=== PATIENT | female | born 1995 | race American Indian/Alaskan Native ===

== ENCOUNTER 2016-06-28 12:58 | Emergency (ER) | payer OTHER, MEDICAID ==
[2016-06-28 13:26] VITALS: BP 120/85
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
== END 2016-06-28 17:48 | disposition left against medical advice (07) ==
LOC: ED 12:58
DX: R51 Headache (principal); R42 Dizziness and giddiness; F17.200 Nicotine dependence, unspecified, uncomplicated; Z91.030 Bee allergy status; V49.9XXA Car occupant (driver) (passenger) injured in unspecified traffic accident, initial encounter; Y93.89 Activity, other specified; Y99.9 Unspecified external cause status; Y92.410 Unspecified street and highway as the place of occurrence of the external cause; Z53.21 Procedure and treatment not carried out due to patient leaving prior to being seen by health care provider
CPT/HCPCS: 70450; 81025

== ENCOUNTER 2016-09-29 16:59 | Emergency (ER) | payer BC, MEDICAID ==
[2016-09-29 17:16] VITALS: BP 126/62
[2016-09-29 17:49] LABS: Basophils % (Auto) 0.3 % (0.0-1.8); Eosinophils % (Auto) 6.3 % (0.0-4.3); Hematocrit 37.4 % (30.3-42.9); Hemoglobin 11.8 gm/dl (10.1-14.3); Mean Corpuscular HGB Conc 32 % (30-34); Mean Corpuscular Volume 75 fl (79-97); Platelet Count 341 K/mm3 (140-440); Red Blood Count 4.99 M/mm3 (3.65-5.03); Red Cell Distribution Width 16.5 % (13.2-15.2); White Blood Count 10.8 K/mm3 (4.5-11.0)
[2016-09-29 17:59] LABS: Anion Gap 18 mmol/L; BUN/Creatinine Ratio 12.85; Blood Urea Nitrogen 9 mg/dL (7-17); Calcium 9.7 mg/dL (8.4-10.2); Carbon Dioxide 24 mmol/L (22-30); Chloride 103.9 mmol/L (98-107); Glucose 92 mg/dL (65-100); Potassium 4.5 mmol/L (3.6-5.0); Sodium 141 mmol/L (137-145)
[2016-09-29 18:09] LABS: Mean Corpuscular Hemoglobin 24 pg (28-32)
[2016-09-29 18:15] LABS: Bilirubin,Urine NEG (Negative); Blood,Urine NEG (Negative); Ketones,Urine NEG (Negative); Leukocyte Esterase,Urine NEG (Negative); Mucus,Urine FEW /HPF; Nitrite,Urine NEG (Negative); Protein,Urine <15 mg/dL mg/dL (Negative); Urobilinogen,Urine < 2.0 mg/dL (<2.0)
--- NOTE | 2016-09-30 10:48 | ED Elopement Review ---
ED Pt Elopement review - Results review Lab results: Laboratory Tests 09/29/16 09/29/16 09/29/16 17:20 17:20 17:44 WBC 10.8 RBC 4.99 Hgb 11.8 Hct 37.4 MCV 75 L MCH 24 L MCHC 32 RDW 16.5 H Plt Count 341 Lymph % (Auto) 37.1 H Stewart % (Auto) 7.0 Eos % (Auto) 6.3 H Baso % (Auto) 0.3 Lymph # 4.0 Stewart # 0.8 Eos # 0.7 H Baso # 0.0 Seg Neutrophils % 49.3 Seg Neutrophils # 5.3 Sodium 141 Potassium 4.5 Chloride 103.9 Carbon Dioxide 24 Anion Gap 18 BUN 9 Creatinine 0.7 Estimated GFR > 60 BUN/Creatinine Ratio 12.85 Glucose 92 Calcium 9.7 Urine Color Yellow Urine Turbidity Clear Urine pH 6.0 Ur Specific Girard 1.017 Urine Protein <15 mg/dl Urine Glucose (UA) Neg Urine Ketones Neg Urine Blood Neg Urine Nitrite Neg Ur Reducing Substances Not Reportable Urine Bilirubin Neg Urine Ictotest Not Reportable Urine Urobilinogen < 2.0 Ur Leukocyte Esterase Neg Urine WBC (Auto) 1.0 Urine RBC (Auto) 2.0 U Epithel Cells (Auto) 1.0 Urine Mucus Few Urine HCG, Qual Negative - Call Back decision Pt Call Back Decision: No action required
== END 2016-09-29 23:00 | disposition left against medical advice (07) ==
LOC: ED 16:59
DX: R10.9 Unspecified abdominal pain (principal); Z53.21 Procedure and treatment not carried out due to patient leaving prior to being seen by health care provider
CPT/HCPCS: 36415; 80048; 81001; 81025; 85025

== ENCOUNTER 2017-04-17 15:24 | Emergency (ER) | payer BC, MEDICAID ==
[2017-04-17 16:27] VITALS: BP 110/62
[2017-04-17 19:51] LABS: Bilirubin,Urine NEG (Negative); Blood,Urine SM (Negative); Color,Urine Red (Yellow); Mucus,Urine 1+ /HPF; Nitrite,Urine NEG (Negative); Protein,Urine <15 mg/dL mg/dL (Negative); Urobilinogen,Urine < 2.0 mg/dL (<2.0)
[2017-04-17 19:52] LABS: HCG Qualitative,Urine Negative (Negative)
== END 2017-04-17 22:08 | disposition left against medical advice (07) ==
LOC: ED 15:24
DX: R07.9 Chest pain, unspecified (principal); Z53.21 Procedure and treatment not carried out due to patient leaving prior to being seen by health care provider
CPT/HCPCS: 36415; 81001; 81025

== ENCOUNTER 2017-04-20 17:34 | Emergency (ER) | payer MEDICAID ==
[2017-04-20 18:01] VITALS: BP 124/55
[2017-04-20 18:50] LABS: Bilirubin,Urine NEG (Negative); Blood,Urine NEG (Negative); Color,Urine Yellow (Yellow); Mucus,Urine FEW /HPF; Nitrite,Urine NEG (Negative); Protein,Urine <15 mg/dL mg/dL (Negative); Urobilinogen,Urine < 2.0 mg/dL (<2.0)
[2017-04-20 19:57] LABS: Hematocrit 33.5 % (30.3-42.9); Hemoglobin 10.5 gm/dl (10.1-14.3); Mean Corpuscular HGB Conc 31 % (30-34); Mean Corpuscular Hemoglobin 23 pg (28-32); Mean Corpuscular Volume 74 fl (79-97); Platelet Count 325 K/mm3 (140-440); Red Blood Count 4.52 M/mm3 (3.65-5.03); Red Cell Distribution Width 16.7 % (13.2-15.2)
[2017-04-20 20:11] LABS: Alanine Aminotransferase 24 units/L (7-56); BUN/Creatinine Ratio 19; Blood Urea Nitrogen 13 mg/dL (7-17); Calcium 8.9 mg/dL (8.4-10.2); Hemolysis Index 29
[2017-04-20 20:31] LABS: Band Neutrophils # (Manual) 0.1 K/mm3; Basophils % (Manual) 0 % (0.0-1.8); Total Cells Counted 100
[2017-04-20 20:32] LABS: Ovalocytes 1+; Platelet Estimate Consistent w Auto; Poikilocytosis Few
== END 2017-04-21 03:30 | disposition left against medical advice (07) ==
LOC: ED 17:34
DX: R10.9 Unspecified abdominal pain (principal); Z53.21 Procedure and treatment not carried out due to patient leaving prior to being seen by health care provider
CPT/HCPCS: 36415; 80053; 81001; 85007; 85025

== ENCOUNTER 2017-07-01 03:07 | Emergency (ER) | payer BC, MEDICAID ==
[2017-07-01 03:17] VITALS: BP 115/77
[2017-07-01 03:43] LABS: Hemoglobin 10.8 gm/dl (10.1-14.3); Mean Corpuscular HGB Conc 33 % (30-34); Mean Corpuscular Volume 74 fl (79-97); Platelet Count 330 K/mm3 (140-440); Red Blood Count 4.48 M/mm3 (3.65-5.03); Red Cell Distribution Width 16.5 % (13.2-15.2)
[2017-07-01 03:44] LABS: Mean Corpuscular Hemoglobin 24 pg (28-32)
[2017-07-01 04:01] LABS: Alanine Aminotransferase 16 units/L (7-56); Albumin 4.2 g/dL (3.9-5); BUN/Creatinine Ratio 16; Blood Urea Nitrogen 11 mg/dL (7-17); Calcium 9.3 mg/dL (8.4-10.2); Hemolysis Index 7
[2017-07-01 04:34] LABS: Basophils % (Manual) 0 % (0.0-1.8); Total Cells Counted 100
[2017-07-01 04:37] LABS: Hypochromasia 1+
[2017-07-01 04:38] LABS: Platelet Estimate Consistent w Auto
[2017-07-01 05:04] LABS: Bilirubin,Urine NEG (Negative); Blood,Urine SM (Negative); Color,Urine Yellow (Yellow); Mucus,Urine FEW /HPF; Protein,Urine <15 mg/dL mg/dL (Negative); Urobilinogen,Urine < 2.0 mg/dL (<2.0)
[2017-07-01 05:12] LABS: HCG Qualitative,Urine Negative (Negative)
== END 2017-07-01 04:15 | disposition left against medical advice (07) ==
LOC: ED 03:07
DX: R10.9 Unspecified abdominal pain (principal); Z53.21 Procedure and treatment not carried out due to patient leaving prior to being seen by health care provider
CPT/HCPCS: 36415; 80053; 81001; 81025; 85007; 85025

== ENCOUNTER 2019-06-01 19:57 | Emergency (ER) | payer BC, MEDICAID ==
[2019-06-01 20:55] VITALS: BP 112/72
--- NOTE | 2019-06-01 20:55 | Event Note ---
ED Screening Note Date of service: 06/01/19 Time: 20:53 ED Screening Note: 24 y o fmeale presents cc of left sided uuper abd pain x 2 days pt also cc of cp x 1month now states just took a home upt that was positive LMP 04/29/19 This initial assessment/diagnostic orders/clinical plan/treatment(s) is/are subject to change based on patients health status, clinical progression and re- assessment by fellow clinical providers in the ED. Further treatment and workup at subsequent clinical providers discretion. Patient/guardian urged not to elope from the ED as their condition may be serious if not clinically assessed and managed. Initial orders include: ua,upt
[2019-06-01 22:19] LABS: HCG Qualitative,Urine Positive (Negative)
[2019-06-01 22:25] LABS: Bilirubin,Urine NEG (Negative); Blood,Urine NEG (Negative); Color,Urine Yellow (Yellow); Mucus,Urine 1+ /HPF; Protein,Urine <15 mg/dL mg/dL (Negative)
== END 2019-06-02 03:30 | disposition left against medical advice (07) ==
LOC: ED 19:57
DX: O26.891 Other specified pregnancy related conditions, first trimester (principal); R07.89 Other chest pain; R10.9 Unspecified abdominal pain; Z3A.00 Weeks of gestation of pregnancy not specified; Z53.21 Procedure and treatment not carried out due to patient leaving prior to being seen by health care provider
CPT/HCPCS: 81001; 81025; 93005; 93010